=== PATIENT | female | born 1975 | race Caucasian/White ===

== ENCOUNTER 2021-08-13 05:21 | Inpatient (IN) | payer SELFPAY ==
[~2021-08-13] VITALS: Ht 165.1 cm; Wt 96.6 kg
[2021-08-13] VITALS (10 sets, daily range): BP systolic 109–150; BP diastolic 64–95; PULSE 52–93; TEMP 97.1–98.6
[2021-08-13] MEDS ORDERED: FLONASE NASAL S16 GM NS (06:18)
[2021-08-13] MEDS ORDERED: PERCOCET 325 MG1 TA2 PO (06:18)
[2021-08-13] MEDS ORDERED: IPRATROPIUM BROM3 M1 IH (06:19)
[2021-08-13] MEDS ORDERED: MOTRIN 600600 MG/TAB PO (06:20)
[2021-08-14 00:15] VITALS: BP 107/74; PULSE 78; TEMP 98.8
[2021-08-14 04:00] VITALS: BP 105/84; PULSE 61; TEMP 98.7
[2021-08-14 07:03] VITALS: BP 142/96; PULSE 68; TEMP 98.5
[2021-08-14] MEDS ORDERED: IBU600 MG PO (08:44)
[2021-08-14] MEDS ORDERED: PERCOCET 325 MG1 TA2 PO (08:44)
== END 2021-08-14 09:35 | disposition home or self-care (01) | DRG 743 ==
LOC: SDCO 05:21 → OB 09:37
PROVIDERS: ADMIT Obstetrics & Gynecology
PROC: 0UT78ZZ Resection of Bilateral Fallopian Tubes, Via Natural or Artificial Opening Endoscopic (ICD-10-PCS; 2021-08-13)
PROC: 0UT9FZZ Resection of Uterus, Via Natural or Artificial Opening With Percutaneous Endoscopic Assistance (ICD-10-PCS; principal; 2021-08-13 07:30)
PROC: 0UT0FZZ Resection of Right Ovary, Via Natural or Artificial Opening With Percutaneous Endoscopic Assistance (ICD-10-PCS; 2021-08-13 07:30)
DX: N92.1 Excessive and frequent menstruation with irregular cycle (principal); N83.201 Unspecified ovarian cyst, right side; N70.11 Chronic salpingitis; K21.9 Gastro-esophageal reflux disease without esophagitis; I10 Essential (primary) hypertension; F32.A Depression, unspecified; J44.9 Chronic obstructive pulmonary disease, unspecified; E66.9 Obesity, unspecified; R91.8 Other nonspecific abnormal finding of lung field; Z68.35 Body mass index [BMI] 35.0-35.9, adult
CPT/HCPCS: A4314; J0690; J1100; J1170; J1885; J2270; J2405; J2704; J2710; J3010; J7120